=== PATIENT | female | born 2000 | race Two or more races ===

== ENCOUNTER 2025-03-25 19:34 | Emergency (ER) | payer MEDICAID ==
[~2025-03-25] VITALS: Ht 165.1 cm; Wt 77.1 kg
[2025-03-25] MEDS: IV NS 0.9% 1,000 ML BAG IV ONE (20:33)
[2025-03-25 20:48] LABS: PLATELET COUNT (AUTO) 217 K/uL (150-450); RED BLOOD CELL COUNT(AUTO) 4.90 MIL/uL (4.0-5.2); RED CELL DISTRIBUTION WIDTH 13.5 % (11.5-15.0); WHITE BLOOD COUNT (AUTO) 10.5 K/uL (4.3-11.0)
[2025-03-25 20:57] LABS: CALCIUM, SERUM 9.0 mg/dL (8.5-10.1); CREATININE 0.6 mg/dL (0.6-1.3); SODIUM SERUM 139.0 mmol/L (136-145); UREA NITROGEN, BLOOD 11.0 mg/dL (7-18)
[2025-03-25] MEDS ORDERED: MECL-159 PO (21:57)
[2025-03-25 23:24] VITALS: BP 121/60; TEMP 98.2; O2SAT 98
== END 2025-03-25 23:25 | disposition home or self-care (01) ==
LOC: ER 19:46
DX: R55 Syncope and collapse (principal); R10.20 Pelvic and perineal pain unspecified side; Z60.2 Problems related to living alone
CPT/HCPCS: 99285; 96360; 71045; 93005; 85025; 80048; 36415; 84702; J7030